=== PATIENT | female | born 1990 | race Caucasian/White ===

== ENCOUNTER 2021-10-16 03:17 | Emergency (ER) | payer MEDICAID ==
[~2021-10-16] VITALS: Ht 157.5 cm; Wt 70.0 kg
[2021-10-16 04:47] VITALS: BP 111/65
[2021-10-16 04:52] LABS: BASOPHILS % 0.6 % (0.0-2.0); EOSINOPHILS % 0.4 % (0.0-5.0); HEMATOCRIT. 39.7 % (36.0-48.0); HEMOGLOBIN. 13.3 g/dL (12.0-16.0); LYMPHOCYTES % 17.4 % (20.0-50.0); MEAN CORPUSCULAR VOLUME 89.8 fL (81.0-99.0); MEAN PLATELET VOLUME 8.7 fl (7.4-10.4); MONOCYTES % 5.5 % (2.0-8.0); NEUTROPHILS % 76.1 % (40.0-76.0); PLATELET 344 x1000/uL (130-400); RED BLOOD CELL COUNT 4.42 mill/uL (4.2-5.4); RED CELL DISTRIBUTION WIDTH 13.4 % (11.6-14.6)
[2021-10-16 05:08] LABS: CHLORIDE 105 mEq/L (98-107)
[2021-10-16 05:10] LABS: HCG SCREEN NEGATIVE
[2021-10-16] MEDS ORDERED: DICYCLOMINE 10 MG/5 ML ORAL SYR PO STA (05:18)
[2021-10-16] MEDS ORDERED: FAMOTIDINE 20MG/2ML VIAL IV STA (05:18)
[2021-10-16] MEDS ORDERED: KETOROLAC 30MG/ML VIAL IV STA (05:18)
[2021-10-16] MEDS ORDERED: MAGNESIUM/ALUMINUM HYDROXIDE/SIMETHICONE 30ML UDC PO STA (05:18)
[2021-10-16] MEDS ORDERED: VISCOUS LIDOCAINE 2% 15 ML UDC PO STA (05:18)
[2021-10-16] MEDS ORDERED: SODIUM CHLORIDE 0.9% 1,000 ML IV ONE (05:30)
[2021-10-16 06:23] LABS: CLARITY URINE CLEAR (CLEAR); COLOR URINE YELLOW (YELLOW); KETONES URINE NEGATIVE (NEGATIVE); LEUKOCYTE ESTERASE URINE NEGATIVE (NEGATIVE); NITRITE URINE NEGATIVE (NEGATIVE); OCCULT BLOOD URINE NEGATIVE (NEGATIVE); PH URINE >=9.0 (4.5-8.0); PROTEIN URINE 1+ (NEGATIVE); SPECIFIC GRAVITY URINE 1.022 (1.005-1.030)
[2021-10-16] MEDS ORDERED: OMEP20TA23 PO (06:41)
== END 2021-10-16 07:20 | disposition home or self-care (01) ==
LOC: ER 03:17
DX: K29.70 Gastritis, unspecified, without bleeding (principal); F12.10 Cannabis abuse, uncomplicated; F17.210 Nicotine dependence, cigarettes, uncomplicated; Z98.890 Other specified postprocedural states; Z71.6 Tobacco abuse counseling
CPT/HCPCS: 36415; 74176; 80053; 81003; 83690; 84703; 85025; 96361; 96374; 96375; 99284; 99406; J1885; J3490; J7030